=== PATIENT | male | born 1935 | race Caucasian/White ===

== ENCOUNTER 2023-02-20 04:16 | Emergency (ER) | payer MEDICARE, BC ==
[~2023-02-20] VITALS: Ht 182.9 cm; Wt 99.8 kg
--- NOTE | ~2023-02-20 | EKG ---
[facility] [address] [facility] [place], [place] [address] Draft EK completed, results pending confirmation PATIENT NAME: TOMMYMELISAPEDRO JESSENIA Electrocardiogram DATE OF : [birth year] PHYSICIAN: PRELIMINARY REPORT #: [id number] REPORT IS CONFIDENTIAL AND NOT TO BE RELEASED WITHOUT AUTHORIZATION
[2023-02-20] MEDS ORDERED: OMEPRAZOLE20 MG PO (04:45)
[2023-02-20] MEDS ORDERED: IRBESARTAN150 MG PO (04:45)
[2023-02-20] MEDS ORDERED: HYDROCHLOROTH12.5 MG PO (04:46)
[2023-02-20] MEDS ORDERED: NEURONTIN300 MG PO (04:47)
[2023-02-20] MEDS ORDERED: LIPITOR40 MG PO (04:47)
[2023-02-20] MEDS ORDERED: TERAZOSIN HCL5 MG PO (04:48)
[2023-02-20] MEDS ORDERED: ADULT ASPIRIN R81 MG PO (04:50)
[2023-02-20] MEDS ORDERED: KLOR-CON 1010 MEQ PO (05:59)
[2023-02-20] MEDS ORDERED: MAGNESIUM250 M2 PO (05:59)
[2023-02-20] MEDS ORDERED: AMIODARONE HCL100 MG PO (05:59)
[2023-02-20 08:17] VITALS: BP 131/67
== END 2023-02-20 08:13 | disposition home or self-care (01) ==
LOC: ED 04:16
DX: I47.1 Supraventricular tachycardia (principal); E87.6 Hypokalemia; E83.42 Hypomagnesemia; I10 Essential (primary) hypertension; I25.2 Old myocardial infarction; Z95.5 Presence of coronary angioplasty implant and graft; Z79.899 Other long term (current) drug therapy; Z79.82 Long term (current) use of aspirin
CPT/HCPCS: 36415; 71045; 80053; 83735; 83880; 84484; 85025; 85610; 93005; 93010; A9270; J0153; J0282; J3475; J3480; J7030

== ENCOUNTER 2023-02-22 08:08 | Emergency (ER) | payer MEDICARE, BC ==
[~2023-02-22] VITALS: Ht 182.9 cm; Wt 99.8 kg
[~2023-02-22 08:08] MED LIST: ADULT ASPIRIN R81 MG PO; AMIODARONE HCL100 MG PO; HYDROCHLOROTH12.5 MG PO; IRBESARTAN150 MG PO; KLOR-CON 1010 MEQ PO; LIPITOR40 MG PO; MAGNESIUM250 M2 PO; NEURONTIN300 MG PO; OMEPRAZOLE20 MG PO; TERAZOSIN HCL5 MG PO
--- OUTSIDE RECORDS SUMMARY | 2023-02-22 08:17 | XMS ---
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 Curt VISIT COUNT (12 MO.) 2 [facility] TOTAL 2 NOTE: Visits indicate total known visits. ED/UCC VISIT TRACKING (12 MO.) 02/22/2023 08:08 [facility] [place] TYPE: Emergency COMPLAINT: - RAPID HEART RATE 02/20/2023 04:16 [facility] [place] TYPE: Emergency COMPLAINT: - CHEST PAIN DIAGNOSES: - Essential (primary) hypertension - Hypokalemia - Hypomagnesemia - emt intermediate (current) use of aspirin - Old myocardial infarction - Other chest pain - Other lobsterman (current) drug therapy - Presence of coronary angioplasty implant and graft - Supraventricular tachycardia INPATIENT VISIT TRACKING (12 MO.) No inpatient visits to display in this time frame [email or web address]
[2023-02-22] MEDS ORDERED: AMIODARONE HCL200 MG PO (12:34)
[2023-02-22 12:45] VITALS: BP 142/65
--- NOTE | 2023-02-22 22:12 | EKG ---
[facility] [address] [facility] [place] [address] Signed Sinus rhythm with 1st degree AV block with premature atrial complexes Septal infarct , age undetermined Abnormal ECG Confirmed by Amita Tsang MD () on 02/22/2023 10:12:00 PM Electronically Signed By: AMITA TSANG MD 02/22/232211 PATIENT NAME: PEDRO HESS Electrocardiogram DATE OF : [birth year] PHYSICIAN: AMITA TSANG MD REPORT #: [id number] REPORT IS CONFIDENTIAL AND NOT TO BE RELEASED WITHOUT AUTHORIZATION
== END 2023-02-22 12:45 | disposition home or self-care (01) ==
LOC: ED 08:08
DX: I49.9 Cardiac arrhythmia, unspecified (principal); I25.2 Old myocardial infarction; I10 Essential (primary) hypertension; Z95.5 Presence of coronary angioplasty implant and graft; Z79.899 Other long term (current) drug therapy; Z79.82 Long term (current) use of aspirin
CPT/HCPCS: 36415; 80053; 83735; 84484; 85025; 93005; 93010; 96365; 99285-25; J3475